=== PATIENT | male | born 1945 | race Caucasian/White ===

== ENCOUNTER → 2017-08-02 16:13 | Outpatient (CLI) | payer MEDICARE, SELFPAY ==
[2017-08-02 17:40] LABS: Hematocrit 38.7 % (40-54); Hemoglobin 13.1 g/dl (13.0-16.5); Mean Corp Hgb Conc 33.9 g/gl (32-36); Mean Corpuscular Hgb 30.5 pg (27.0-32.0); Mean Corpuscular Volume 90.2 fL (80-94); Mean Platelet Vol. 11.1 fl (6.2-12.0); Platelet Count 231 K/mm3 (150-450); RBC Distribution Width CV 13.6 % (11.6-14.6); RBC Distribution Width SD 43.9 fl (35.1-43.9); Red Blood Count 4.29 M/mm3 (4.6-6.2); White Blood Count 8.4 K/mm3 (4.4-11.0)
[2017-08-02 17:58] LABS: Scan Indicated on CBC? Y/N NO
[2017-08-02 18:00] LABS: Erythrocyte Sedimentation Rate 14 mm/hr (0-20)
[2017-08-02 18:10] LABS: CRP < 2.90 mg/L (0.0-3.0); Glucose 90 mg/dL (70-110)
== END ==
PROVIDERS: Family Provider Family Medicine; PCP Family Medicine; Visit Provider Ophthalmology
DX: H49.22 Sixth [abducent] nerve palsy, left eye (principal)
CPT/HCPCS: 36415; 82947; 85027; 85652; 86140

== ENCOUNTER → 2017-08-09 11:43 | Outpatient (CLI) | payer MEDICARE, SELFPAY ==
[2017-08-16 07:18] LABS: ACHR Recep AB, Blocking 16 % (0-25); Acetylcholine Receptor Binding < 0.03 nmol/L (0.00-0.24)
== END ==
PROVIDERS: Family Provider Family Medicine; PCP Family Medicine; Visit Provider Ophthalmology
DX: H53.2 Diplopia (principal)
CPT/HCPCS: 36415; 83519; 84238

== ENCOUNTER → 2017-08-10 17:04 | Outpatient (CLI) | payer MEDICARE, SELFPAY ==
--- NOTE | 2017-08-10 17:18 | MRI_ITS ---
STUDY: MRI BRAIN WITH AND WITHOUT CONTRAST REASON FOR EXAM: Male, 72 years old. Diplopia, left eye problems TECHNIQUE: Standardized multiplanar fat and water weighted pulse sequences were obtained. 10 ml of Gadavist contrast material was administered intravenously for the contrast portion of the examination. COMPARISON: None. FINDINGS: Mild age-appropriate atrophy.. Mild periventricular white matter ischemic changes without mass effect or restricted diffusion. . There is a lesion involving the right sided optic radiation. There is also very subtle lesion on the FLAIR imaging sequence involving the right dorsal brainstem at the pontomesencephalic junction Normal bilateral basal ganglia. Normal thalami. There is no extra-axial fluid accumulation. Normal flow voids within the major intracranial circulation suggesting patency by spin echo criteria. Normal venous enhancement. There is no enhancing intra-axial or extra-axial abnormality. Normal sella turcica, pituitary gland, infundibular stalk, optic chiasm and hypothalamus. Normal tectal plate and pineal gland. Normal medulla. Normal cerebellum. Normal basal cisterns. Normal bilateral temporal bones. Normal bilateral internal auditory canals. Fluid signal in the right mastoid air cells which may be consistent with inflammatory disease. No demonstrated orbital abnormality, within the constraints of a routine brain study. There is minor bilateral maxillary and ethmoid sinusitis.. Normal calvarium and skull base. Normal visualized soft tissue structures. Normal visualized upper cervical spine. MRI/Brain W/WO Contrast IMPRESSION: Mild periventricular white matter ischemic changes without mass effect or restricted diffusion. Mild chronic ischemic changes in the right brainstem at the pontomesencephalic junction. No evidence for acute infarct No abnormal enhancing lesions are identified. Electronically Signed: Juan Bro MD at 19:00 EST , Service support ,
[2017-08-10 18:46] LABS: CREATININE FINGERSTICK 1.4 mg/dL (0.70-1.30)
== END ==
PROVIDERS: Family Provider Family Medicine; PCP Family Medicine; Visit Provider Ophthalmology
DX: H53.2 Diplopia (principal)
CPT/HCPCS: 70553; A9585

== ENCOUNTER → 2017-10-05 12:50 | Outpatient (CLI) | payer MEDICARE, SELFPAY ==
[2017-10-10 15:45] LABS: ACHR Recep AB, Blocking 12 % (0-25)
== END ==
PROVIDERS: Family Provider Family Medicine; PCP Family Medicine; Visit Provider Psychiatry & Neurology Neurology
DX: H53.2 Diplopia (principal)
CPT/HCPCS: 36415; 83519

== ENCOUNTER → 2017-10-20 12:54 | Outpatient (CLI) | payer MEDICARE, SELFPAY ==
--- NOTE | 2017-10-20 12:56 | CDU_ITS ---
Reason For Study: DIPLOPIA (H53.2) Rt. Velocities/BP Lt. Velocities/BP Prox CCA 85.6/12.9 cm/sec. Prox CCA 98.5/21.1 cm/sec. Mid CCA 86.8/17.6 cm/sec. Mid CCA 96.7/19.3 cm/sec. Dist CCA 80.3/22.9 cm/sec. Dist CCA 85.6/21.7 cm/sec. Prox ICA 57.5/14.1 cm/sec. Prox ICA 63.3/16.4 cm/sec. Mid ICA 71.9/22.4 cm/sec. Mid ICA 63.8/19.6 cm/sec. Dist ICA 56.7/20.0 cm/sec. Dist ICA 50.2/15.5 cm/sec. Rt. ICA/CCA = 71.9/86.8=0.83. Lt. ICA/CCA = 63.8/96.7=0.66. Prox ECA 92.0/15.8 cm/sec. Prox ECA 113.0/15.8 cm/sec. Rt. Vert. 36.5/13.0 cm/sec. Lt. Vert. 45.2/13.0 cm/sec. Right Extracranial There is homogeneous, smooth atherosclerotic plaque noted in the right common carotid artery. There is heterogeneous, smooth atherosclerotic plaque noted in the right internal carotid artery. There is intimal thickening but no significant atherosclerotic plaque noted in the right external carotid artery. Antegrade flow is noted in the right vertebral artery. Left Extracranial There is homogeneous, smooth atherosclerotic plaque noted in the left common carotid artery. There is heterogeneous, smooth atherosclerotic plaque noted in the left internal carotid artery. There is no significant atherosclerotic plaque noted in the left external carotid artery. Antegrade flow is noted in the left vertebral artery. Interpretation Summary There is < 50% stenosis in bilateral extracranial internal carotid arteries based on velocity criteria. There is heterogenous atherosclerotic plaque noted in bilateral extracranial internal carotid arteries. There is homogenous atherosclerotic plaque noted in bilateral common carotid arteries. There is antegrade flow noted in both vertebral arteries. Ordering Physician: Neo Stewart Referring Physician: Jose Alejandro Vargas Performed By: Meghan Morrissey, SHERRIE, RVT
== END ==
PROVIDERS: Family Provider Family Medicine; PCP Family Medicine; Visit Provider Psychiatry & Neurology Neurology
DX: H53.2 Diplopia (principal)
CPT/HCPCS: 93880